=== PATIENT | male | born 1965 | race Caucasian/White ===

== ENCOUNTER 2019-08-09 12:37 | Outpatient (RCR) | payer MEDICARE ==
[~2019-08-09 12:37] MED LIST: ASPIRIN E.C. 8181 MG PO; ATARAX25 MG PO; CENTRUM1 TAB PO; EFFEXOR XR75 MG/CAP PO; FISH OIL CONC1000 MG PO; HALCION 0.0.125 MG/T PO; IBUPROFEN800 MG PO; MEDRIN PO; MVI PO; NIFEREX-150 FOR1 CA1 PO; VITAMIN C1 TAB PO; VITAMIN D; ZINC SO4 PO
== END 2019-11-07 | disposition home or self-care (01) ==
LOC: WSST
DX: R13.12 Dysphagia, oropharyngeal phase (principal)

== ENCOUNTER → 2019-08-31 | Outpatient (CLI) | payer MEDICARE | LOC: COL.RAD 08-17 15:30 | DX: R13.12 Dysphagia, oropharyngeal phase (principal) ==

== ENCOUNTER 2020-02-02 14:32 | Outpatient (RCR) | payer MEDICARE | END 2020-05-02 | LOC: WSST | DX: R13.12 Dysphagia, oropharyngeal phase (principal); J38.5 Laryngeal spasm ==

== ENCOUNTER → 2020-08-21 | Outpatient (CLI) | payer MEDICARE ==
[~2020-08-21] VITALS: Ht 190.5 cm; Wt 132.0 kg
[~2020-08-21] MED LIST changes: +BUSPAR10 MG PO; +CYMBALTA 60MG60 MG PO; +DEPAKOTE ER 50500 MG PO; +FLEXERIL 1010 MG/TAB PO; +HUMALOG100 U/ML SQ; +HYTRIN 5MG C5 MG/CAP PO; +HYTRIN10 M1 PO; +KEPPRA XR500 MG PO; +LEVEMIR100 U/ML SQ; +LIPITOR 80MG80 MG PO; +NEURONTIN300 MG/CAP PO; +NORCO 325 MG-7.1 TAB PO; +PRINIVIL10 MG PO; +PROAIR HFA0.09 MG/AC IH; +REMERON30 MG PO; +SEROQUEL400 MG PO; +SEROQUEL50 MG PO; +SYNTHROID0.075 MG/T PO; +TRELEGY ELLIPT1 EACH IH
[2020-08-21 13:45] VITALS: BP 166/86; PULSE 110
[2020-08-21 15:00] VITALS: BP 137/76; PULSE 93
[2020-08-21 15:19] LABS: PLEURAL FLUID RBC 46000 /mm3 (0-0); PLEURAL FLUID WBC 1288 /mm3
--- NOTE | 2020-08-21 15:21 | NUR ---
DR FERNANDEZ REMOVED 420 ML OF CLEAR RED FLUID FROM THE LEFT LUNG AREA. CXR PENDING
[2020-08-21 15:23] LABS: PLEURAL FLUID APPEARANCE BLOODY; PLEURAL FLUID COLOR RED
[2020-08-21 15:48] LABS: GLUCOSE,PLEURAL FLUID 166 mg/dL
== END ==
LOC: COL.RAD 12:24
PROVIDERS: Internal Medicine Pulmonary Disease
DX: J90 Pleural effusion, not elsewhere classified (principal)